=== PATIENT | female | born 1965 | race Caucasian/White ===

== ENCOUNTER 2018-02-09 20:08 | Emergency (ER) | payer OTHER ==
[~2018-02-09] VITALS: Ht 175.3 cm; Wt 161.9 kg
[~2018-02-09 20:08] MED LIST: ASPIR 8181 MG PO; CIPRO500 MG PO; Halfprin PO; LISINOPRIL-HCT1 EAC3 PO; LOPRESSOR25 MG PO; LOVASTATIN20 MG PO; MOTRIN800 MG PO; NORCO 7.5/321 TABLET PO; PREDNISONE20 MG PO; Protonix PO; VALIUM5 MG PO; XARELTO20 MG PO; ZESTORETIC,P1 TABLE1 PO
[2018-02-09 21:00] LABS: APPEARANCE CLEAR ((CLEAR)); BILIRUBIN NEGATIVE; BLOOD NEGATIVE; COLOR STRAW ((YELLOW)); GLUCOSE (STRIP) NEGATIVE; KETONES NEGATIVE; LEUKOCYTES NEGATIVE; NITRITE NEGATIVE; PROTEIN (STRIP) NEGATIVE; SPECIFIC GRAVITY 1.008 (1.000-1.030); UCUL ADDED? NO; UROBILINOGEN 0.2 MG/DL (0.2-1.0)
[2018-02-09 21:42] LABS: CHLORIDE 101 mEq/L (99-109); POTASSIUM 3.5 mEq/L (3.7-5.4); SODIUM 138 mEq/L (136-147)
[2018-02-09 21:44] LABS: GLUCOSE 117 mg/dL (70-99)
[2018-02-09 21:48] LABS: GFR ESTIMATE (CALCULATED) > 59 mL/min/; HEMATOCRIT 39.5 % (36.0-46.0); MCHC 32.9 G/DL (30.0-36.0); RBC DIS.WIDTH-CV 13.4 % (11.8-14.6); RBC DIS.WIDTH-SD 39.8 % (39-53); RED BLOOD COUNT 4.82 M/uL (3.80-5.20); WHITE BLOOD COUNT 7.4 K/uL (4.1-10.2)
[2018-02-09 21:49] LABS: UREA NITROGEN (BUN) 16 mg/dL (9-23)
[2018-02-09 22:22] LABS: PLATELET CLUMPS PRESENT - PLATELET COUNT APPEARS ADEQUATE; PLATELET COUNT UNABLE TO REPORT K/uL (156-360)
[2018-02-10] MEDS ORDERED: MOTRIN800 MG PO (00:59)
[2018-02-10] MEDS ORDERED: BACLOFEN10 MG PO (00:59)
[2018-02-10 01:06] VITALS: BP 133/75
== END 2018-02-10 01:08 | disposition home or self-care (01) ==
LOC: EME 20:08
PROVIDERS: Nurse Practitioner Family
DX: R10.9 Unspecified abdominal pain (principal); R11.0 Nausea; J45.909 Unspecified asthma, uncomplicated; E78.5 Hyperlipidemia, unspecified; I10 Essential (primary) hypertension; Z85.71 Personal history of Hodgkin lymphoma; Z88.0 Allergy status to penicillin; Z88.8 Allergy status to other drugs, medicaments and biological substances
CPT/HCPCS: 74177; 80048; 81003; 85027; 99281; 99284; J1200; J1885; J7030